=== PATIENT | female | born 1975 | race Caucasian/White ===

== ENCOUNTER 2020-07-31 20:19 | Emergency (ER) | payer MEDICARE, MEDICAID, SELFPAY ==
--- NOTE | ~2020-07-31 | XR_ITS ---
EXAMINATION: XR CHEST CLINICAL INFORMATION: Right lower chest pain COMPARISON: None TECHNIQUE: 2 views of the chest were obtained. FINDINGS: No significant abnormality is noted involving the heart, lungs, mediastinum, bony thorax or soft tissues. XR/XR chest 2V IMPRESSION: Unremarkable examination.
--- NOTE | ~2020-07-31 | US_ITS ---
EXAMINATION: US ABDOMEN LIMITED CLINICAL INFORMATION: Right upper quadrant pain. COMPARISON: None TECHNIQUE: Real-time imaging of the right upper quadrant abdominal viscera. FINDINGS: PANCREAS: The visualized head and body of the pancreas appears unremarkable. Remainder of the pancreas is obscured by bowel gas. LIVER: Diffuse increased echogenicity. Focal fatty sparing. No focal hepatic lesions otherwise seen. No intrahepatic biliary duct dilatation. GALLBLADDER: Gallbladder is contracted, limiting evaluation. No shadowing gallstone is seen. No gallbladder wall thickening is seen. No pericholecystic fluid. Technologist reports tenderness in the area of the gallbladder. COMMON BILE DUCT: Normal in caliber measuring 0.3 cm in diameter. RIGHT KIDNEY: Normal. No hydronephrosis. No renal calculi or focal parenchymal lesions. The kidney measures 10 cm in maximum dimension. FREE FLUID: None. US/US abdomen limited IMPRESSION: 1. Gallbladder is contracted limiting evaluation. No shadowing gallstone seen. No gallbladder wall thickening or pericholecystic fluid. Nonspecific tenderness in the area of the gallbladder. Recommend fasting follow up ultrasound for further evaluation if there is persistent concern for gallbladder disease. 2. Increased hepatic echogenicity probably reflecting fatty infiltration. Focal fatty sparing noted. No biliary duct dilatation.
[2020-07-31 20:25] VITALS: BP 139/77; PULSE 95; RESP 17; TEMP 36.8; O2SAT 100; BMI 38.9
[2020-07-31 21:44] LABS: Glucose Urine UA 250 MG/DL (NEG); Leukocyte Esterase Urine NEG (NEG); Nitrite Urine NEG (NEG); Specific Gravity - Urine 1.015 (1.005-1.025); Urine Blood NEG (NEG); Urine Ketones NEG (NEG); Urine Protein NEG (NEG-TRACE)
--- NOTE | 2020-07-31 21:45 | ED.GENADULT ---
HPI - General Adult General Chief complaint: General Medical Stated complaint: Rib pain Time Seen by Provider: 07/31/20 21:44 Source: patient Mode of arrival: ambulatory History of Present Illness HPI narrative: This is a 44-year-old female who is presenting with 1 day right upper quadrant pain without radiation that has not been associated with fevers, chills, cough, nausea, vomiting, diarrhea, urinary pain/burning/frequency. Related Data Allergies Allergy/AdvReac Type Severity Reaction Status Date / Time No Known Allergies Allergy Unverified 01/07/20 17:41 Review of Systems Review of Systems: Pertinent positives and negatives as stated in HPI 10 point review of systems is otherwise negative. PMFSH Past Medical History Source: nursing notes reviewed Medical History Acid reflux Anxiety Asthma Depression Diabetes UTI (urinary tract infection) Social History Social History Advance Directives: No Advance Directives Information Provided: No Physical Exam Vital Signs: Vital Signs: Last Vital Signs Temp 98.2 F 07/31/20 20:25 Pulse 95 07/31/20 20:25 Resp 17 07/31/20 20:25 BP 139/77 07/31/20 20:25 Pulse Ox 100 07/31/20 20:25 Body Mass Index 38.9 VITAL SIGNS: Reviewed. GENERAL: Well developed, well nourished, in no acute distress. HEAD: Normocephalic/atraumatic EYES: PERRLA, EOMI EARS: Ext canals without abnormality NOSE: Nares patent bilateral OROPHARYNX: no oral lesions noted, posterior pharynx clear NECK: Supple, no adenopathy LUNGS: Normal breath sounds. No adventitious sounds or accessory muscle use. SpO2<100> CARDIOVASCULAR: Regular rate and rhythm without noted murmurs ABDOMEN: Obese, Soft, tenderness said right upper quadrant without rebound, Hong's positive, non-distended with bowel sounds, no CVA tenderness. NEUROLOGIC: Alert and oriented x 4. Course Course Course Narrative: 44-year-old female with history and clinical presentation suggestive of cholecystitis, pyelonephritis, renal colic, and less likely constipation or gastritis. Review of all investigations negative for any acute findings. All results were discussed with the patient at bedside and she was discharged home in stable condition with presumptive muscle strain from activities the previous day. Medical Decision Making Lab Data Result diagrams: 07/31/20 22:27 07/31/20 22:27 Labs: Lab Results 07/31/20 07/31/20 07/31/20 Range/Units 21:36 21:36 21:58 WBC (4.8-10.8) X10*3/uL RBC (4.20-5.50) X10*6/uL Hgb (12.0-16.0) g/dl Hct (37-47) % MCV (80-98) fL MCH (27.0-33.0) pg MCHC (31.0-35.0) g/dl RDW (11.0-16.0) % Plt Count (160-400) X10*3/uL MPV (9.4-12.3) fL Immature Gran % (Auto) (0.0-0.4) % Neut % (Auto) (45-73) % Lymph % (Auto) (20-40) % [place] % (Auto) (2-11) % Eos % (Auto) (0-4) % Baso % (Auto) (0-2) % Lymph # (Auto) (1.2-4.9) X10*3/uL [place] # (Auto) (0.1-1.2) X10*3/uL Eos # (Auto) (0.0-0.4) X10*3/uL Baso # (Auto) (0.0-0.2) X10*3/uL Abs Immat Gran (auto) (0.00-0.03) X10*3/uL Absolute Neuts (auto) (2.0-8.3) X10*3/uL Absolute Nucleated RBC (0.0-0.012) X10*3/uL Nucleated RBC % (auto) (0.0-0.2) /100WBC Sodium (135-145) mmol/L Potassium (3.3-5.1) mmol/L Chloride (96-108) mmol/L Carbon Dioxide (22-29) mmol/L Anion Gap (12-20) BUN (9-16) mg/dL Creatinine (0.5-1.4) mg/dL Estim Creat Clear Calc Estimated GFR POC Glucose 234 H (60-115) mg/dL Random Glucose (60-115) mg/dL Calcium (8.4-10.2) mg/dL Total Bilirubin (0.0-1.0) mg/dL AST (5-31) U/L ALT (0-31) U/L Alkaline Phosphatase (39-117) U/L Total Protein (6.5-8.0) g/dL Albumin (3.5-5.0) g/dL Lipase (8-78) U/L Urine Color YELLOW Urine Appearance CLEAR Urine pH 7.0 (5.0-8.0) Ur Specific [place] 1.015 (1.005-1.025) Urine Protein NEG (NEG-TRACE) MG/DL Urine Glucose (UA) 250 H (NEG) MG/DL Urine Ketones NEG (NEG) MG/DL Urine Blood NEG (NEG) Urine Nitrite NEG (NEG) Ur Leukocyte Esterase NEG (NEG) Urine Test NEGATIVE (NEGATIVE) COVID-19 (CED) (Negative) COVID-19 Clin Com 07/31/20 07/31/20 07/31/20 Range/Units 22:27 22:27 22:27 WBC 10.5 (4.8-10.8) X10*3/uL RBC 4.75 (4.20-5.50) X10*6/uL Hgb 12.8 (12.0-16.0) g/dl Hct 39.6 (37-47) % MCV 83.4 (80-98) fL MCH 26.9 L (27.0-33.0) pg MCHC 32.3 (31.0-35.0) g/dl RDW 14.5 (11.0-16.0) % Plt Count 285 (160-400) X10*3/uL MPV 9.7 (9.4-12.3) fL Immature Gran % (Auto) 0.2 (0.0-0.4) % Neut % (Auto) 58.4 (45-73) % Lymph % (Auto) 36.1 (20-40) % [place] % (Auto) 3.3 (2-11) % Eos % (Auto) 1.7 (0-4) % Baso % (Auto) 0.3 (0-2) % Lymph # (Auto) 3.8 (1.2-4.9) X10*3/uL [place] # (Auto) 0.4 (0.1-1.2) X10*3/uL Eos # (Auto) 0.2 (0.0-0.4) X10*3/uL Baso # (Auto) 0.0 (0.0-0.2) X10*3/uL Abs Immat Gran (auto) 0.02 (0.00-0.03) X10*3/uL Absolute Neuts (auto) 6.1 (2.0-8.3) X10*3/uL Absolute Nucleated RBC 0.000 (0.0-0.012) X10*3/uL Nucleated RBC % (auto) 0.0 (0.0-0.2) /100WBC Sodium 139 (135-145) mmol/L Potassium 3.9 (3.3-5.1) mmol/L Chloride 102 (96-108) mmol/L Carbon Dioxide 28 (22-29) mmol/L Anion Gap 13 (12-20) BUN 9 (9-16) mg/dL Creatinine 0.75 (0.5-1.4) mg/dL Estim Creat Clear Calc 114.6 Estimated GFR > 60 POC Glucose (60-115) mg/dL Random Glucose 238 H (60-115) mg/dL Calcium 9.4 (8.4-10.2) mg/dL Total Bilirubin 0.4 (0.0-1.0) mg/dL AST 13 (5-31) U/L ALT 18 (0-31) U/L Alkaline Phosphatase 121 H (39-117) U/L Total Protein 7.1 (6.5-8.0) g/dL Albumin 4.2 (3.5-5.0) g/dL Lipase 29 (8-78) U/L Urine Color Urine Appearance Urine pH (5.0-8.0) Ur Specific [place] (1.005-1.025) Urine Protein (NEG-TRACE) MG/DL Urine Glucose (UA) (NEG) MG/DL Urine Ketones (NEG) MG/DL Urine Blood (NEG) Urine Nitrite (NEG) Ur Leukocyte Esterase (NEG) Urine Test (NEGATIVE) COVID-19 (CED) Negative (Negative) COVID-19 Clin Com See Note Discharge Plan Discharge Clinical Impression: Muscle strain Patient Disposition: Home, Self-Care Instructions: Muscle Strain (ED) Additional Instructions: 1. Resume all home medications as prescribed. 2. Recommend [id number] Tylenol/ibuprofen as needed for pain control as well as application a heating pad. 3. Please follow-up with your primary care provider for re-evaluation in 2-3 days. Do not hesitate to return to the emergency department should you experience any acute worsening of your symptoms. Referrals: Rohan Umaña MD [Primary Care Provider] - 2 days (Re-evaluation after seen in the emergency department for right upper quadrant abdominal discomfort. Workup otherwise negative here in the emergency department and treated as presumptive muscle strain from previous day activities.)
[2020-07-31 21:46] LABS: Appearance Urine CLEAR; Color Urine YELLOW
[2020-07-31 21:56] LABS: UPreg QC Valid YES; Urine Pregnancy NEGATIVE (NEGATIVE)
[2020-07-31 22:02] LABS: Glucose, Whole Blood 234 mg/dL (60-115)
[2020-07-31 22:33] LABS: MANUAL DIFF FLAG NO
[2020-07-31 22:35] LABS: Basophils Percent Auto 0.3 % (0-2); Eosinophils Absolute Auto 0.2 X10*3/uL (0.0-0.4); Eosinophils Percent Auto 1.7 % (0-4); Hematocrit 39.6 % (37-47); Hemoglobin 12.8 g/dl (12.0-16.0); Imm Gran Abs Auto 0.02 X10*3/uL (0.00-0.03); Imm Gran Pct Auto 0.2 % (0.0-0.4); Lymphocytes Absolute Auto 3.8 X10*3/uL (1.2-4.9); Lymphocytes Percent Auto 36.1 % (20-40); Mean Corpuscular HGB Conc 32.3 g/dl (31.0-35.0); Mean Corpuscular Hemoglobin 26.9 pg (27.0-33.0); Mean Corpuscular Volume 83.4 fL (80-98); Mean Platelet Volume 9.7 fL (9.4-12.3); Monocytes Absolute Auto 0.4 X10*3/uL (0.1-1.2); Monocytes Percent Auto 3.3 % (2-11); Neutrophils Absolute Auto 6.1 X10*3/uL (2.0-8.3); Neutrophils Percent Auto 58.4 % (45-73); Platelet Count 285 X10*3/uL (160-400); Red Blood Count 4.75 X10*6/uL (4.20-5.50); Red Cell Distribution Width 14.5 % (11.0-16.0); White Blood Count 10.5 X10*3/uL (4.8-10.8)
[2020-07-31 23:09] LABS: Alanine Aminotransferase 18 U/L (0-31); Albumin Level 4.2 g/dL (3.5-5.0); Alkaline Phosphatase 121 U/L (39-117); Anion Gap 13 (12-20); Aspartate Amino Transferase 13 U/L (5-31); Bilirubin Total 0.4 mg/dL (0.0-1.0); Blood Urea Nitrogen 9 mg/dL (9-16); Calcium 9.4 mg/dL (8.4-10.2); Carbon Dioxide 28 mmol/L (22-29); Chloride 102 mmol/L (96-108); Creatinine Clr Calc Pharmacy 114.6; Estimated Glomerular Filt Rate > 60; Glucose Random 238 mg/dL (60-115); Lipase 29 U/L (8-78); Potassium 3.9 mmol/L (3.3-5.1); Sodium 139 mmol/L (135-145); Total Protein 7.1 g/dL (6.5-8.0)
[2020-07-31 23:10] LABS: COVID-19 Test Negative (Negative); IDNOW Serial# 9DD0AD1C
== END 2020-08-01 01:04 | disposition home or self-care (01) ==
PROVIDERS: Emergency Provider Student in an Organized Health Care Education/Training Program; PCP Internal Medicine
DX: S39.011A Strain of muscle, fascia and tendon of abdomen, initial encounter (principal); X58.XXXA Exposure to other specified factors, initial encounter; R10.11 Right upper quadrant pain; Z20.822 Contact with and (suspected) exposure to COVID-19; K21.9 Gastro-esophageal reflux disease without esophagitis; F41.9 Anxiety disorder, unspecified; J45.909 Unspecified asthma, uncomplicated; E11.9 Type 2 diabetes mellitus without complications; Z87.440 Personal history of urinary (tract) infections; Y93.9 Activity, unspecified; Y92.9 Unspecified place or not applicable; Y99.9 Unspecified external cause status
CPT/HCPCS: 36415; 71046; 76705; 80053; 81003; 81025; 82947; 83690; 85025; 87635; 99283; 99284

== ENCOUNTER 2020-09-29 05:53 | Emergency (ER) | payer MEDICARE, MEDICAID, SELFPAY ==
[2020-09-29 07:32] VITALS: BP 132/69; PULSE 93; RESP 20
--- NOTE | 2020-09-29 07:41 | PC.NURSE ---
Pt alert, oriented, VSS, LSCTA, reports Abd cramping 4/10, nausea no vomiting started last night. +BS x4. No other s/s reporteddddddddddddd. Diabetic-POC 221, No apparent distress, MD Misael at bedside.
[2020-09-29 07:49] LABS: Glucose, Whole Blood 221 mg/dL (60-115)
--- NOTE | 2020-09-29 07:50 | ED_ITS ---
HPI - General Adult General Chief complaint: Abdominal Pain Stated complaint: nausea/chills Time Seen by Provider: 09/29/20 07:33 Source: patient Mode of arrival: ambulatory Limitations: no limitations History of Present Illness HPI narrative: 44-year-old female who presents emergency department for evaluation of nausea, chills, urinary frequency and abdominal pain. Patient states that her symptoms started last night around 10:00 p.m.. She states that she is urinating frequently but has no dysuria. She states that she has had persistent nausea with no vomiting. She states she has had intermittent chills. She denied fever. She states that she does have some soreness in her abdomen. She runs or hand diffusely over abdomen when asked to localize the pain. She states the pain is intermittent and is 3/10 at its worst. She has had similar pain in the past. She states she just started her menstrual period today. The patient denied change in her bowel movements. The patient is a diabetic and she states that she takes NovoLog at mealtimes and she believes that this medication may be making her ill however she has been on this medication for a year. She also takes Trulicity and she has been on this for your as well. Related Data Allergies Allergy/AdvReac Type Severity Reaction Status Date / Time No Known Allergies Allergy Unverified 01/07/20 17:41 Review of Systems Review of Systems: Yes all other systems are reviewed and are negative [facility] Past Medical History [facility] Narrative: Social history: She denies tobacco, alcohol and drug use. Medical History Acid reflux Anxiety Asthma Depression Diabetes UTI (urinary tract infection) Social History Social History Alcohol intake: never Patient Tobacco Use Status: Never used Tobacco Advance Directives: No Advance Directives Information Provided: No Physical Exam Vital Signs: Vital Signs: Last Vital Signs Temp 98.3 F 09/29/20 09:48 Pulse 90 09/29/20 09:48 Resp 16 09/29/20 09:48 BP 115/69 09/29/20 09:48 Pulse Ox 98 09/29/20 09:48 Body Mass Index 81.1 Const: General: cooperative and healthy appearing Orientation/consciousness: oriented to person and oriented to place Li mitations: no limitations HENMT: Head: Yes normal to inspection, Yes normocephalic and Yes atraumatic Ears: external ears normal General nose exam: Normal external nose present Face and sinus: Yes normal facial exam Mouth: Normal oral and palatal mucosa present Throat: Yes posterior oropharynx normal Eyes: Periorbital: periorbital findings normal Eyelids: Yes eyelids normal Conjunctivae: conjunctivae normal Sclerae: sclerae normal Corneas: corneas normal Pupils: Equal, round and reactive pupils present Direct Ophthalmoscopy: normal light reflex Neck: Neck: Yes full ROM, Yes no lymphadenopathy, Yes no meningeal signs, Yes trachea midline and Yes supple Chest: Chest palpation & inspection: normal inspection of the chest and normal palpation of entire chest wall Resp: Effort & Inspection: normal respiratory effort and able to speak in complete sentences Auscultation: clear to auscultation bilaterally Cardio: Rate: regular rate Rhythm: regular rhythm Heart sounds: S1 normal heart sound present, S2 normal heart sound present and no murmurs GI: Inspection: Yes normal to inspection Palpation (GI): Soft to palpation, Tenderness to palpation present (GI) in the epigastrum ([id number]), no guarding, not rigid and No hepatosplenomegaly present : General: Yes no CVA tenderness Back/Spine/Pelvis: Back: no CVA tenderness Cervical Spine: normal cervical lordosis Thoracic/Lumbar Spine: thoracic and lumbar spine normal to inspection Skin: Lesions: no lesions Rashes: no rashes Wounds: no wounds Neuro: General: oriented to person, oriented to place and no meningeal signs Cranial nerves: Yes CN's II-XII intact bilaterally and Yes Equal, round and reactive pupils present Cognition (Neuro): normal cognition Motor exam (neuro): 5/5 motor strength present throughout Extrem: General: Yes normal to inspection and Yes full ROM Psych: Appearance: well kempt Mental Status: mental status grossly normal Speech and movement: Normal speech and movement present Affect: normal affect Attitude: cooperative Thought process: Normal thought process present Thought content: Normal thought content present Course Course Course Narrative: 44-year-old female who presents emergency department for evaluation of urinary frequency, chills, abdominal discomfort which began yesterday at 10:00 p.m.. Vital signs were normal. Point of care glucose was elevated 221. Physical examination revealed mild to moderate midepigastric tenderness otherwise was unremarkable. I ordered a CBC, CMP, lipase, urinalysis and urine . 1111: The patient's laboratory evaluation revealed an elevated glucose of 254 and an elevated alk-phos of 127 otherwise was unremarkable. Urinalysis revealed too numerous to count red blood cells with the patient's having her menses. She had 0-2 wbc's suggested she does not have an infection as the cause of her frequency. Patient's frequency may be secondary to her elevated glucose and I did discuss this with her. She was advised to continue taking her medications as prescribed by her provider and to follow-up with a provider for re- evaluation. Medical Decision Making Lab Data Result diagrams: 09/29/20 08:34 09/29/20 08:34 Labs: Lab Results 09/29/20 09/29/20 09/29/20 Range/Units 07:40 08:34 08:34 WBC 9.9 (4.8-10.8) X10*3/uL RBC 4.84 (4.20-5.50) X10*6/uL Hgb 12.9 (12.0-16.0) g/dl Hct 40.6 (37-47) % MCV 83.9 (80-98) fL MCH 26.7 L (27.0-33.0) pg MCHC 31.8 (31.0-35.0) g/dl RDW 14.7 (11.0-16.0) % Plt Count 305 (160-400) X10*3/uL MPV 10.2 (9.4-12.3) fL Immature Gran % (Auto) 0.3 (0.0-0.4) % Neut % (Auto) 74.2 H (45-73) % Lymph % (Auto) 21.7 (20-40) % [place] % (Auto) 2.3 (2-11) % Eos % (Auto) 1.2 (0-4) % Baso % (Auto) 0.3 (0-2) % Lymph # (Auto) 2.2 (1.2-4.9) X10*3/uL [place] # (Auto) 0.2 (0.1-1.2) X10*3/uL Eos # (Auto) 0.1 (0.0-0.4) X10*3/uL Baso # (Auto) 0.0 (0.0-0.2) X10*3/uL Abs Immat Gran (auto) 0.03 (0.00-0.03) X10*3/uL Absolute Neuts (auto) 7.4 (2.0-8.3) X10*3/uL Absolute Nucleated RBC 0.000 (0.0-0.012) X10*3/uL Nucleated RBC % (auto) 0.0 (0.0-0.2) /100WBC Sodium 137 (135-145) mmol/L Potassium 4.2 (3.3-5.1) mmol/L Chloride 103 (96-108) mmol/L Carbon Dioxide 24 (22-29) mmol/L Anion Gap 14 (12-20) BUN 8 L (9-16) mg/dL Creatinine 0.76 (0.5-1.4) mg/dL Estim Creat Clear Calc 180.9 Estimated GFR > 60 POC Glucose 221 H (60-115) mg/dL Random Glucose 254 H (60-115) mg/dL Calcium 9.2 (8.4-10.2) mg/dL Total Bilirubin 0.6 (0.0-1.0) mg/dL AST 17 (5-31) U/L ALT 18 (0-31) U/L Alkaline Phosphatase 127 H (39-117) U/L Total Protein 7.4 (6.5-8.0) g/dL Albumin 4.4 (3.5-5.0) g/dL Lipase 23 (8-78) U/L Urine Color Urine Appearance Urine pH (5.0-8.0) Ur Specific [place] (1.005-1.025) Urine Protein (NEG-TRACE) MG/DL Urine Glucose (UA) (NEG) MG/DL Urine Ketones (NEG) MG/DL Urine Blood (NEG) Urine Nitrite (NEG) Ur Leukocyte Esterase (NEG) Urine RBC (0) /HPF Urine WBC (0-4) /HPF Ur Squamous Epith Cells /LPF Urine Bacteria /LPF Urine Test (NEGATIVE) 09/29/20 09/29/20 Range/Units 08:34 08:34 WBC (4.8-10.8) X10*3/uL RBC (4.20-5.50) X10*6/uL Hgb (12.0-16.0) g/dl Hct (37-47) % MCV (80-98) fL MCH (27.0-33.0) pg MCHC (31.0-35.0) g/dl RDW (11.0-16.0) % Plt Count (160-400) X10*3/uL MPV (9.4-12.3) fL Immature Gran % (Auto) (0.0-0.4) % Neut % (Auto) (45-73) % Lymph % (Auto) (20-40) % [place] % (Auto) (2-11) % Eos % (Auto) (0-4) % Baso % (Auto) (0-2) % Lymph # (Auto) (1.2-4.9) X10*3/uL [place] # (Auto) (0.1-1.2) X10*3/uL Eos # (Auto) (0.0-0.4) X10*3/uL Baso # (Auto) (0.0-0.2) X10*3/uL Abs Immat Gran (auto) (0.00-0.03) X10*3/uL Absolute Neuts (auto) (2.0-8.3) X10*3/uL Absolute Nucleated RBC (0.0-0.012) X10*3/uL Nucleated RBC % (auto) (0.0-0.2) /100WBC Sodium (135-145) mmol/L Potassium (3.3-5.1) mmol/L Chloride (96-108) mmol/L Carbon Dioxide (22-29) mmol/L Anion Gap (12-20) BUN (9-16) mg/dL Creatinine (0.5-1.4) mg/dL Estim Creat Clear Calc Estimated GFR POC Glucose (60-115) mg/dL Random Glucose (60-115) mg/dL Calcium (8.4-10.2) mg/dL Total Bilirubin (0.0-1.0) mg/dL AST (5-31) U/L ALT (0-31) U/L Alkaline Phosphatase (39-117) U/L Total Protein (6.5-8.0) g/dL Albumin (3.5-5.0) g/dL Lipase (8-78) U/L Urine Color PINK Urine Appearance CLOUDY Urine pH 7.0 (5.0-8.0) Ur Specific [place] 1.020 (1.005-1.025) Urine Protein NEG (NEG-TRACE) MG/DL Urine Glucose (UA) NEG (NEG) MG/DL Urine Ketones NEG (NEG) MG/DL Urine Blood 3+ H (NEG) Urine Nitrite NEG (NEG) Ur Leukocyte Esterase TRACE H (NEG) Urine RBC TNTC H (0) /HPF Urine WBC 0-2 (0-4) /HPF Ur Squamous Epith Cells 1+ /LPF Urine Bacteria 1+ /LPF Urine Test NEGATIVE (NEGATIVE) Discharge Plan Discharge Clinical Impression: Acute hyperglycemia, Urinary frequency Patient Disposition: Home, Self-Care Additional Instructions: Your blood work was normal except for a at an elevation in your glucose of 254. Your urinalysis did not reveal any evidence for urine infection. Your frequent urination may be caused by high glucose. Continue to take your medications as prescribed your provider. Follow-up with your doctor in 2 days. Please return to the emergency department if your symptoms get worse or if you develop any symptoms that are concerning to you.
[2020-09-29 08:03] VITALS: BP 132/69; PULSE 93; RESP 20; TEMP 37; O2SAT 99; BMI 81.1
[2020-09-29 08:41] LABS: MANUAL DIFF FLAG NO
[2020-09-29 08:42] LABS: Basophils Percent Auto 0.3 % (0-2); Eosinophils Absolute Auto 0.1 X10*3/uL (0.0-0.4); Eosinophils Percent Auto 1.2 % (0-4); Hematocrit 40.6 % (37-47); Hemoglobin 12.9 g/dl (12.0-16.0); Imm Gran Abs Auto 0.03 X10*3/uL (0.00-0.03); Imm Gran Pct Auto 0.3 % (0.0-0.4); Lymphocytes Absolute Auto 2.2 X10*3/uL (1.2-4.9); Lymphocytes Percent Auto 21.7 % (20-40); Mean Corpuscular HGB Conc 31.8 g/dl (31.0-35.0); Mean Corpuscular Hemoglobin 26.7 pg (27.0-33.0); Mean Corpuscular Volume 83.9 fL (80-98); Mean Platelet Volume 10.2 fL (9.4-12.3); Monocytes Absolute Auto 0.2 X10*3/uL (0.1-1.2); Monocytes Percent Auto 2.3 % (2-11); Neutrophils Absolute Auto 7.4 X10*3/uL (2.0-8.3); Neutrophils Percent Auto 74.2 % (45-73); Platelet Count 305 X10*3/uL (160-400); Red Blood Count 4.84 X10*6/uL (4.20-5.50); Red Cell Distribution Width 14.7 % (11.0-16.0); White Blood Count 9.9 X10*3/uL (4.8-10.8)
[2020-09-29 08:45] LABS: Glucose Urine UA NEG (NEG); Leukocyte Esterase Urine TRACE (NEG); Nitrite Urine NEG (NEG); UACC Culture Trigger YES; Urine Blood 3+ (NEG); Urine Ketones NEG (NEG); Urine Protein NEG (NEG-TRACE)
[2020-09-29 08:49] LABS: Appearance Urine CLOUDY; Color Urine PINK
[2020-09-29 08:52] LABS: UPreg QC Valid YES; Urine Pregnancy NEGATIVE (NEGATIVE)
[2020-09-29 08:58] LABS: Bacteria Urine 1+ /LPF; RBC Urine TNTC /HPF (0); Squamous Epithelial Cell Urine 1+ /LPF; WBC Urine 0-2 /HPF (0-4)
[2020-09-29 09:16] LABS: Alanine Aminotransferase 18 U/L (0-31); Albumin Level 4.4 g/dL (3.5-5.0); Alkaline Phosphatase 127 U/L (39-117); Anion Gap 14 (12-20); Aspartate Amino Transferase 17 U/L (5-31); Bilirubin Total 0.6 mg/dL (0.0-1.0); Blood Urea Nitrogen 8 mg/dL (9-16); Calcium 9.2 mg/dL (8.4-10.2); Carbon Dioxide 24 mmol/L (22-29); Chloride 103 mmol/L (96-108); Creatinine Clr Calc Pharmacy 180.9; Estimated Glomerular Filt Rate > 60; Glucose Random 254 mg/dL (60-115); Lipase 23 U/L (8-78); Potassium 4.2 mmol/L (3.3-5.1); Sodium 137 mmol/L (135-145); Total Protein 7.4 g/dL (6.5-8.0)
[2020-09-29 09:48] VITALS: BP 115/69; PULSE 90; RESP 16; TEMP 36.8; O2SAT 98
== END 2020-09-29 11:20 | disposition home or self-care (01) ==
PROVIDERS: Emergency Provider Emergency Medicine Emergency Medical Services
DX: E11.65 Type 2 diabetes mellitus with hyperglycemia (principal); R35.0 Frequency of micturition; Z87.440 Personal history of urinary (tract) infections
CPT/HCPCS: 36415; 80053; 81001; 81003; 81025; 82947; 83690; 85025; 87086; 99283; 99284

== ENCOUNTER 2021-04-03 13:09 | Emergency (ER) | payer MEDICARE, MEDICAID, SELFPAY ==
[2021-04-03 15:20] VITALS: BP 138/87; PULSE 94; RESP 17; TEMP 36.7; O2SAT 98
[2021-04-03 15:41] LABS: Appearance Urine CLEAR; Color Urine STRAW; Glucose Urine UA NEG (NEG); Leukocyte Esterase Urine 1+ (NEG); Nitrite Urine NEG (NEG); Specific Gravity - Urine <= 1.005 (1.005-1.025); UACC Culture Trigger YES; Urine Blood NEG (NEG); Urine Ketones NEG (NEG); Urine Protein NEG (NEG-TRACE)
[2021-04-03 16:55] LABS: Bacteria Urine TRACE /LPF; RBC Urine 0 /HPF (0); Squamous Epithelial Cell Urine 1+ /LPF; UACC CULT YES
--- NOTE | 2021-04-03 19:31 | PC.NURSE ---
no response in the waiting room at this time
== END 2021-04-03 20:46 | disposition left against medical advice (07) ==
LOC: HO.ED 20:28
PROVIDERS: Emergency Provider Emergency Medicine
DX: R35.0 Frequency of micturition (principal); Z87.440 Personal history of urinary (tract) infections
CPT/HCPCS: 81001; 87086; 99282; 99283

== ENCOUNTER 2024-11-08 09:38 | Emergency (ER) | payer MEDICARE, MEDICAID, SELFPAY ==
[2024-11-08 09:48] VITALS: BP 149/77; PULSE 76; RESP 16; TEMP 36.4; O2SAT 100; BMI 37.4
[2024-11-08 11:10] VITALS: BP 128/61; PULSE 87; RESP 14; TEMP 36.1; O2SAT 99
[2024-11-08 11:21] LABS: Appearance Urine Clear; PH 5.5 (5.0-9.0); Specific Gravity - Urine 1.020 (1.005-1.025); UMIC TRIGGER UACC YES; UPreg QC Valid YES
[2024-11-08 11:29] LABS: UACC Culture Trigger YES
--- NOTE | 2024-11-08 11:41 | ED_ITS ---
HPI - Female Genitourinary General Chief complaint: Urogenital-Female Stated complaint: UTI Time Seen by Provider: 11/08/24 10:36 Source: patient Mode of arrival: ambulatory Limitations: no limitations History of Present Illness ED Provider: Elana Infante NP Related Data Allergies Allergy/AdvReac Type Severity Reaction Status Date / Time No Known Allergies Allergy Verified 11/08/24 09:49 PMFSH Past Medical History Medical History Acid reflux Anxiety Asthma Depression Diabetes UTI (urinary tract infection) Social History Social History Alcohol intake: never Patient Tobacco Use Status: Never used Tobacco Smoked in Last 30 Days: No Use of substances other than those prescribed or required for medical reasons: No Advance Directives: No Advance Directives Information Provided: Yes Do you have a plan to hurt others: No Plan Patient : No Physical Exam Vital Signs: Vital Signs: Last Vital Signs Temp 97.0 F 11/08/24 11:10 Pulse 87 11/08/24 11:10 Resp 14 11/08/24 11:10 BP 128/61 11/08/24 11:10 Pulse Ox 99 11/08/24 11:10 O2 Del Method Room Air 11/08/24 11:10 BMI result Body Mass Index 37.4 Medical Decision Making Lab Data Labs: Lab Results 11/08/24 Range/Units 11:09 Urine Color [place] Urine Appearance Clear Urine pH 5.5 (5.0-9.0) Ur Specific [place] 1.020 (1.005-1.025) Urine Protein See Note (Neg-Trace) mg/dL Urine Glucose (UA) See Note (Negative) mg/dL Urine Ketones See Note (Negative) mg/dL Urine Blood Negative (Negative) Urine Nitrite See Note (Negative) Ur Leukocyte Esterase Trace H (Negative) Urine RBC 0-2 (0-2) /HPF Urine WBC 0-5 (0-5) /HPF Ur Squamous Epith Cells 3-5 (0-2) /HPF Urine Bacteria None Seen (None Seen) Hyaline Casts 0-2 (0-2) /LPF Urine Test NEGATIVE (NEGATIVE) Discharge Plan Discharge Print Language: Spanish
--- NOTE | 2024-11-08 12:00 | ED.FEMALEGU ---
HPI - Female Genitourinary General Chief complaint: Urogenital-Female Stated complaint: UTI Time Seen by Provider: 11/08/24 10:36 Source: patient Mode of arrival: ambulatory Limitations: no limitations History of Present Illness ED Provider: Elana Infante NP HPI Narrative: Patient is a 48-year-old female with past medical history of diabetes, hyperlipidemia, asthma, GERD, anxiety who presents emergency department for evaluation of urinary frequency over the past week. No dysuria, hematuria, urgency or hesitancy. Reports having ongoing issues with vaginal dryness and irritation but no abnormal discharge or bleeding. She suspects that she may be perimenopausal she is awaiting an outpatient evaluation with nursing home social worker. She has an appoint with her primary care doctor scheduled in 3 days to discuss these symptoms. However the frequency become more bothersome. She has had urinary tract infections in the past fix but not in the past year typically has associated dysuria with this. She has no nausea, vomiting, abdominal pain, back/flank pain. No gastrointestinal symptoms.. Related Data Allergies Allergy/AdvReac Type Severity Reaction Status Date / Time No Known Allergies Allergy Verified 11/08/24 09:49 Review of Systems Review of Systems: Yes all other systems are reviewed and are negative PMFSH Past Medical History Attestation statement: The following information was validated with the patient. Source: old records reviewed Medical History UTI (urinary tract infection) Acid reflux Depression Anxiety Asthma Diabetes Social History Social History Alcohol intake: never Patient Tobacco Use Status: Never used Tobacco Smoked in Last 30 Days: No Use of substances other than those prescribed or required for medical reasons: No Advance Directives: No Advance Directives Information Provided: Yes Do you have a plan to hurt others: No Plan Patient : No Physical Exam Exam: Exam: Appearance: Alert.?Oriented to person, place and time. No acute distress.?Normal affect. CVS: Heart sounds normal. Normal heart rate and rhythm.? Pulses normal.?? Respiratory: No respiratory distress.? Lung sounds clear to auscultation bilaterally?? Abdomen: Soft and non-tender. Normoactive bowel sounds. No CVAT. Skin: Skin warm and dry.? Normal skin color.? ?? Extremities: No lower extremity edema.? Neuro: Moves all extremities spontaneously. Sensation intact bilaterally. Ambulates with normal steady gait. Vital Signs: Vital Signs: Last Vital Signs Temp 97.0 F 11/08/24 11:10 Pulse 87 11/08/24 11:10 Resp 14 11/08/24 11:10 BP 128/61 11/08/24 11:10 Pulse Ox 99 11/08/24 11:10 O2 Del Method Room Air 11/08/24 11:10 BMI result Body Mass Index 37.4 Medical Decision Making Medical Decision Making [facility] Narrative: Patient is a 48-year-old female with past medical history of diabetes, hyperlipidemia, asthma, GERD, anxiety who presents emergency department for evaluation of urinary frequency over the past week as per HPI, she has been experiencing ongoing issues with vaginal dryness, awaiting nursing home social worker evaluation for perimenopause. History of urinary tract infection so this typically presents with dysuria which she is currently without. Has a benign abdominal examination, no CVA tenderness. Low suspicion for pyelonephritis. Urinalysis was obtained, with trace leukocyte esterase otherwise no compelling evidence to suggest acute urinary tract infection, hCG is negative. Patient electing to perform self vaginal swabs for bacterial vaginosis plan and in addition to CT NG which will not result today. She is a diabetic, that urinary frequency/polyuria may be secondary to diabetes as well, she states that her blood sugars have been well controlled recently, POC glucose of 320, she states that she ate prior to arrival had not taken insulin, declines further evaluation for hyperglycemia stating that she needs to leave has a needs to get to work.. Given strict return precautions, advised outpatient follow-up with primary care provider/nursing home social worker, all questions answered. Differential Diagnosis Differential Diagnoses: The differential diagnosis associated with the presentation includes (See narrative above) Admission/Observation Consideration of admission/observation: Escalation of care including admission/observation considered Lab Data [facility] Lab Attestation statement: I reviewed the patient's lab results. (See narrative above) Labs: Lab Results 11/08/24 11/08/24 Range/Units 11:09 12:08 POC Glucose 320 H (60-115) mg/dL Urine Color [place] Urine Appearance Clear Urine pH 5.5 (5.0-9.0) Ur Specific [place] 1.020 (1.005-1.025) Urine Protein See Note (Neg-Trace) mg/dL Urine Glucose (UA) See Note (Negative) mg/dL Urine Ketones See Note (Negative) mg/dL Urine Blood Negative (Negative) Urine Nitrite See Note (Negative) Ur Leukocyte Esterase Trace H (Negative) Urine RBC 0-2 (0-2) /HPF Urine WBC 0-5 (0-5) /HPF Ur Squamous Epith Cells 3-5 (0-2) /HPF Urine Bacteria None Seen (None Seen) Hyaline Casts 0-2 (0-2) /LPF Urine Test NEGATIVE (NEGATIVE) External Record Review External record reviewed: Outpatient record Prescription Management I considered prescription management with: Antibiotic (See narrative above) Chronic Conditions Patient?s care impacted by: Other (See narrative above) Discharge Plan Discharge Clinical Impression: Urinary frequency Patient Disposition: Home, Self-Care Instructions: Urinary Urgency and Frequency (DC) Additional Instructions: You were seen in the emergency department today for urinary frequency over the past week. A urine sample was sent, does not appear compelling we like there is a urinary infection, there is no blood in the urine. Testing today for bacterial vaginosis panel was sent to the lab, will not result but if there is a positive result you will get a phone call from the emergency department. Please follow-up with your primary care doctor as scheduled, and consider rescheduling an appointment with [facility] given your concerns for perimenopause. Return back to emergency department any new or worsening symptoms or concerns. Referrals: Pan Naranjo PA [Primary Care Provider, Internal Medicine] Print Language: Irish
[2024-11-08 12:11] LABS: Glucose, Whole Blood 320 mg/dL (60-115)
[2024-11-08 12:22] VITALS: BP 128/61; PULSE 87; RESP 14; TEMP 36.1; O2SAT 99
[2024-11-08 14:04] LABS: Bacterial Vaginosis PCR NEGATIVE (Negative); Candida Group PCR DETECTED (Not Detect); Candida glab krusei PCR NOT DETECTED (Not Detect); Trichomonas vaginalis PCR NOT DETECTED (Not Detect)
[2024-11-08 14:36] LABS: CT PCR NOT DETECTED (Not Detect.); NG PCR NOT DETECTED (Not Detect.)
--- NOTE | 2024-11-10 09:23 | ED.FEMALEGU ---
HPI - Female Genitourinary General Chief complaint: Urogenital-Female Stated complaint: UTI Time Seen by Provider: 11/08/24 10:36 Source: patient Mode of arrival: ambulatory Limitations: no limitations Related Data Previous Rx's ?Medication ?Instructions ?Recorded fluconazole 150 mg tablet 150 mg PO Q3D 2 doses #2 tabs 11/10/24 Allergies Allergy/AdvReac Type Severity Reaction Status Date / Time No Known Allergies Allergy Verified 11/08/24 09:49 [facility] Past Medical History Medical History UTI (urinary tract infection) Acid reflux Depression Anxiety Asthma Diabetes Social History Social History Alcohol intake: never Patient Tobacco Use Status: Never used Tobacco Smoked in Last 30 Days: No Use of substances other than those prescribed or required for medical reasons: No Advance Directives: No Advance Directives Information Provided: Yes Do you have a plan to hurt others: No Plan Patient : No Physical Exam Vital Signs: Vital Signs: Last Vital Signs Temp 97.0 F 11/08/24 12:22 Pulse 87 11/08/24 12:22 Resp 14 11/08/24 12:22 BP 128/61 11/08/24 12:22 Pulse Ox 99 11/08/24 12:22 O2 Del Method Room Air 11/08/24 12:22 BMI result Body Mass Index 37.4 Medical Decision Making Lab Data Labs: Lab Results 11/08/24 11/08/24 11/08/24 Range/Units 11:09 12:06 12:08 POC Glucose 320 H (60-115) mg/dL Urine Color [place] Urine Appearance Clear Urine pH 5.5 (5.0-9.0) Ur Specific [place] 1.020 (1.005-1.025) Urine Protein See Note (Neg-Trace) mg/dL Urine Glucose (UA) See Note (Negative) mg/dL Urine Ketones See Note (Negative) mg/dL Urine Blood Negative (Negative) Urine Nitrite See Note (Negative) Ur Leukocyte Esterase Trace H (Negative) Urine RBC 0-2 (0-2) /HPF Urine WBC 0-5 (0-5) /HPF Ur Squamous Epith Cells 3-5 (0-2) /HPF Urine Bacteria None Seen (None Seen) Hyaline Casts 0-2 (0-2) /LPF Urine Test NEGATIVE (NEGATIVE) Chlam trachomat DNA PCR NOT DETECTED (Not Detect.) N.gonorrhoeae DNA (PCR) NOT DETECTED (Not Detect.) T. vaginalis (PCR) NOT DETECTED (Not Detect) Bact vaginosis (PCR) NEGATIVE (Negative) C. krusei/glabrata (PCR) NOT DETECTED (Not Detect) Annika group (PCR) DETECTED A (Not Detect) Discharge Plan Discharge Clinical Impression: Urinary frequency Patient Disposition: Home, Self-Care Instructions: Urinary Urgency and Frequency (DC) Additional Instructions: You were seen in the emergency department today for urinary frequency over the past week. A urine sample was sent, does not appear compelling we like there is a urinary infection, there is no blood in the urine. Testing today for bacterial vaginosis panel was sent to the lab, will not result but if there is a positive result you will get a phone call from the emergency department. Please follow-up with your primary care doctor as scheduled, and consider rescheduling an appointment with [facility] given your concerns for perimenopause. Return back to emergency department any new or worsening symptoms or concerns. Prescriptions: New fluconazole 150 mg tablet 150 mg PO Q3D Qty: 2 0RF Rx Instructions: may repeat second dose 72 hrs after first dose if symptoms persist Referrals: Pan Naranjo PA [Primary Care Provider, Internal Medicine] Interventions: ED Discharge Assessment Last Done: 11/08/24 12:22 Discharge Date/Time: 11/08/24 12:25 Print Language: Serbian
== END 2024-11-08 12:25 | disposition home or self-care (01) ==
PROVIDERS: Nurse Practitioner Family; Emergency Provider Emergency Medicine; PCP Physician Assistant Medical
DX: B37.31 Acute candidiasis of vulva and vagina (principal); N39.0 Urinary tract infection, site not specified; R35.0 Frequency of micturition; Z79.899 Other long term (current) drug therapy
CPT/HCPCS: 81001; 81025; 81515; 82947; 87086; 87491; 87591; 99283; 99284